=== PATIENT | male | born 1930 | race Hispanic/Latino ===

== ENCOUNTER 2019-02-06 10:50 | Day surgery (SDC) | payer MEDICARE, OTHER ==
[2019-02-06] MEDS ORDERED: MYDRIACYL OD ONE (11:27)
[2019-02-06] MEDS ORDERED: IOPIDINE OD ONE (11:27)
[2019-02-06] MEDS ORDERED: NEOFRIN OD ONE (11:27)
[2019-02-06 12:21] VITALS: BP 140/70
== END 2019-02-06 10:51 | disposition home or self-care (01) ==
LOC: OR 10:50
PROVIDERS: ATTEND Specialist
DX: H26.491 Other secondary cataract, right eye (principal); Z87.891 Personal history of nicotine dependence; Z79.82 Long term (current) use of aspirin; Z98.41 Cataract extraction status, right eye; Z98.42 Cataract extraction status, left eye; Z98.890 Other specified postprocedural states

== ENCOUNTER 2019-02-14 11:02 | Day surgery (SDC) | payer MEDICARE, OTHER ==
[~2019-02-14 11:02] MED LIST: IOPIDINE ONE; MYDRIACYL ONE; NEOFRIN ONE
[2019-02-14] MEDS ORDERED: NEOFRIN OS ONE (11:13)
[2019-02-14] MEDS ORDERED: MYDRIACYL OS ONE (11:13)
[2019-02-14] MEDS ORDERED: IOPIDINE OS ONE (11:13)
[2019-02-14 12:24] VITALS: BP 141/69
== END 2019-02-14 11:03 | disposition home or self-care (01) ==
LOC: OR 11:02
PROVIDERS: ATTEND Specialist
DX: H26.492 Other secondary cataract, left eye (principal); Z79.899 Other long term (current) drug therapy; Z79.82 Long term (current) use of aspirin; Z87.891 Personal history of nicotine dependence; Z98.41 Cataract extraction status, right eye; Z98.42 Cataract extraction status, left eye; Z98.890 Other specified postprocedural states